=== PATIENT | female | born 1975 | race African-American/Black ===

== ENCOUNTER 2020-01-04 04:03 | Emergency (ER) | payer SELFPAY ==
[~2020-01-04] VITALS: Ht 167.6 cm; Wt 72.0 kg
--- NOTE | 2020-01-04 04:17 | PHYS DOC ---
General Adult EDM: Chief Complaint: CHEST PAIN HPI: HPI: Patient is a 44 year old female who arrives via EMS with report of chest discomfort that EMS reports that started approximately 30 minutes prior to arrival. Patient indicates that pain actually started last year when her mother . She states that her sister had murdered her mother as a ritualistic murder to the [employer]. Patient describes pain as sharp and stabbing in nature and states the pain is worsened with deep breathing. She does admit to feeling anxious. She also indicates that she has been depressed intermittently and has had intermittent thoughts of suicide. She denies any specific suicidal ideations at this time. She does indicate that she has a history of bipolar disorder as well as schizophrenia. Patient rates the pain has bad. Patient has had no nausea, vomiting or diaphoresis. [] (FRANCA SAMUELS Jr. DO) Review of Systems: Review of Systems: Constitutional: Denies fever or chills. [] Respiratory: Denies cough or shortness of breath. [] Cardiovascular: Complains of chest pain. [] GI: Denies abdominal pain, nausea, vomiting or diarrhea. [] Neurologic: Denies headache, focal weakness or sensory changes. [] Psychiatric: Complains of depression and anxiety. [] (FRANCA SAMUELS Jr. DO) Heart Score: HEART Score for Chest Pain: HEART Score for Chest Pain Response (Comments) Value History Slighlty/Non-Suspicious 0 Total 0 Risk Factors: Risk Factors: DM, Current or recent (<one month) smoker, HTN, HLP, family history of CAD, obesity. Risk Scores: Score 0 - 3: 2.5% MACE over next 6 weeks - Discharge Home Score 4 - 6: 20.3% MACE over next 6 weeks - Admit for Clinical Observation Score 7 - 10: 72.7% MACE over next 6 weeks - Early Invasive Strategies (FRANCA SAMUELS Jr. DO) Physical Exam: PE: Constitutional: Well developed, well nourished, no acute distress, non-toxic appearance. [] HENT: Normocephalic, atraumatic, bilateral external ears normal, oropharynx moist, no oral exudates, nose normal. [] Eyes: PERRLA, EOMI, conjunctiva normal, no discharge. [] Neck: Normal range of motion, no tenderness, supple. [] Cardiovascular: Regular rate and rhythm [] Lungs & Thorax: Bilateral breath sounds clear to auscultation [] Abdomen: Bowel sounds normal, soft, no tenderness. [] Skin: Warm, dry, no erythema, no rash. [] Extremities: No tenderness, no cyanosis, no clubbing, ROM intact, no edema. [] Neurologic: Awake and alert, no focal deficits noted. [] (FRANCA SAMUELS Jr., DO) EKG: EKG: [] (FRANCA SAMUELS Jr., DO) Radiology/Procedures: Radiology/Procedures: [] (FRANCA SAMUELS Jr., DO) Course & Med Decision Making: Course & Med Decision Making Pertinent Labs and Imaging studies reviewed. (See chart for details) [] (FRANCA SAMUELS Jr., DO) Course & Med Decision Making She was evaluated by the PAT and cleared for discharge (RAMSES VELAZCO DO) Dragon Disclaimer: Dragon Disclaimer: This electronic medical record was generated, in whole or in part, using a voice recognition dictation system. (FRANCA SAMUELS Jr., DO) Departure Departure Impression: Primary Impression: Acute psychosis Additional Impression: Chest wall pain Disposition: HOME, SELF-CARE Condition: STABLE Patient Instructions: Psychosis FRANCA SAMUELS Jr., DO January 04, 2020 04:17 RAMSES VELAZCO DO January 04, 2020 08:15
--- NOTE | 2020-01-04 04:38 | RAD ---
PORTABLE CHEST 1V Clinical Indication: Chest pain Comparison: None. Findings: The cardiomediastinal silhouette is normal. Lungs are clear. There is no pneumothorax. No pleural effusion is appreciated. No acute bone abnormality. IMPRESSION: No acute cardiopulmonary process. Electronically signed by: Celso Gracia MD (01/04/2020 4:34 AM) [id number]
[2020-01-04 04:50] LABS: BASO # 0.1 x10^3/uL (0.0-0.2); BASO % 1 % (0-3); EOS # 0.2 x10^3/uL (0.0-0.7); EOS % 4 % (0-3); HEMATOCRIT 32.6 % (36.0-47.0); HEMOGLOBIN 10.6 g/dL (12.0-15.5); LYMPH # 2.1 x10^3/uL (1.0-4.8); LYMPH % 36 % (24-48); MEAN CORPUSCULAR HEMOGLOBIN 25 pg (25-35); MEAN CORPUSCULAR HGB CONC 32 g/dL (31-37); MEAN CORPUSCULAR VOLUME 78 fL (79-100); MONO # 0.4 x10^3/uL (0.0-1.1); MONO % 6 % (0-9); NEUT # 3.2 x10^3/uL (1.8-7.7); NEUT % 53 % (31-73); PLATELET COUNT 365 x10^3/uL (140-400); RED BLOOD COUNT 4.16 x10^6/uL (3.50-5.40); RED CELL DISTRIBUTION WIDTH 18.9 % (11.5-14.5)
[2020-01-04 05:03] LABS: CALCIUM 8.4 mg/dL (8.5-10.1); CREATININE 0.6 mg/dL (0.6-1.0); GFR 132.7; POTASSIUM 3.5 mmol/L (3.5-5.1)
[2020-01-04 05:11] LABS: ALBUMIN 3.5 g/dL (3.4-5.0); ALBUMIN/GLOBULIN RATIO 0.9 (1.0-1.7); MAGNESIUM 1.8 mg/dL (1.8-2.4); TOTAL BILIRUBIN 0.5 mg/dL (0.2-1.0); TOTAL PROTEIN 7.6 g/dL (6.4-8.2)
[2020-01-04 05:23] LABS: BARBITURATES NEG (NEG); BENZODIAZEPINES NEG (NEG); CANNABINOIDS POS (NEG); COCAINE POS (NEG); METHADONE NEG (NEG); OPIATES NEG (NEG); PHENCYCLIDINE NEG (NEG)
[2020-01-04 05:29] LABS: AMPHETAMINE/METHAMPHETAMINE NEG (NEG)
[2020-01-04] MEDS ORDERED: hydrALAZINE 20 MG/ML VIAL. IVP ONE ×2 (05:30→06:30)
[2020-01-04 05:40] LABS: BILIRUBIN,URINE NEGATIVE (NEG); CLARITY,URINE CLEAR; COLOR,URINE YELLOW; NITRITE,URINE NEGATIVE (NEG); PH,URINE 6.5 (<5.0-8.0); PROTEIN,URINE 30 mg/dL (NEG-TRACE)
[2020-01-04] MEDS ORDERED: IBUPROFEN 200 MG TABLET. PO ONE (06:00)
[2020-01-04 06:05] VITALS: BP 236/113
[2020-01-04 06:05] LABS: BACTERIA,URINE FEW /HPF (0-FEW); SQUAMOUS EPITHELIAL CELL,UR MOD /LPF; TRICHOMONAS,URINE PRESENT; WBC,URINE OCC /HPF (0-4)
--- NOTE | 2020-01-04 06:51 | EKG ---
[facility] [address] [place] [address] Test Date: 2020-01-04 Test Time: 04:15:27 Pat Name: SAVANNAH HAMMONDS Department: Room: Gender: F [employer]: : 1975 Requested By: FRANCA SAMUELS Order Number: [id number] Reading MD: Glen Melendez Measurements Intervals Monitor Rate: 77 P: -64 ID: 150 QRS: -26 QRSD: 96 T: -55 QT: 408 QTc: 464 Interpretive Statements SINUS RHYTHM LEFT ATRIAL ABNORMALITY LEFTWARD AXIS QRS(T) CONTOUR ABNORMALITY CONSISTENT WITH ANTEROSEPTAL INFARCT PROBABLY OLD CONSISTENT WITH INFERIOR INFARCT AGE UNDETERMINED ABNORMAL ECG Electronically Signed On 01-04-2020 13:40:41 CDT by Glen Melendez
== END 2020-01-04 08:34 | disposition home or self-care (01) ==
LOC: ER 04:03
DX: F23 Brief psychotic disorder (principal); R07.89 Other chest pain; F31.9 Bipolar disorder, unspecified; F20.9 Schizophrenia, unspecified
CPT/HCPCS: 36415; 71045; 80053; 80307; 81001; 81025; 83735; 83880; 84484; 85025; 93005; 96374; 96376; 99285; G0480; J0360

== ENCOUNTER 2020-06-03 04:48 | Emergency (ER) | payer SELFPAY ==
[~2020-06-03] VITALS: Ht 170.2 cm; Wt 77.0 kg
[2020-06-03 05:27] LABS: BILIRUBIN,URINE NEGATIVE (NEG); CLARITY,URINE CLOUDY; COLOR,URINE YELLOW; NITRITE,URINE NEGATIVE (NEG); PROTEIN,URINE NEGATIVE (NEG-TRACE); UROBILINOGEN,URINE 0.2 mg/dL (0.2 mg/dL)
--- NOTE | 2020-06-03 05:29 | PHYS DOC ---
Past Medical History Past Medical History: Anxiety, Bipolar, Depression, Hypertension, Schizophrenia Additional Past Medical Histor: MANIC (KATERINA MASTERSON MD) Past Surgical History: Appendectomy, Cholecystectomy, , Tonsillectomy (KATERINA MASTERSON MD) Smoking Status: Current Every Day Smoker Alcohol Use: Heavy (KATERINA MASTERSON MD) General Adult EDM: Chief Complaint: ABDOMINAL PAIN HPI: HPI: Patient is a 45-year-old female with schizophrenia who presents to the emergency room stating that she has some belly pain from a chronic ulcer. She states she has belly pain on the time. History is limited as patient is actively hallucinating. She left [facility] earlier this morning. She denies suicidal homicidal ideations. (KATERINA MASTERSON MD) Review of Systems: Review of Systems: Unable to obtain (KATERINA MASTERSON MD) Heart Score: Risk Factors: Risk Factors: DM, Current or recent (<one month) smoker, HTN, HLP, family history of CAD, obesity. Risk Scores: Score 0 - 3: 2.5% MACE over next 6 weeks - Discharge Home Score 4 - 6: 20.3% MACE over next 6 weeks - Admit for Clinical Observation Score 7 - 10: 72.7% MACE over next 6 weeks - Early Invasive Strategies (KATERINA MASTERSON MD) Allergies: Allergies: Allergies Coded Allergies Type Severity Reaction Last Updated Verified No Known Drug Allergies 01/04/20 No (KATERINA MASTERSON MD) Physical Exam: PE: General: Awake, alert, NAD. Well Nourished, well hydrated. Cooperative HEENT: Atraumatic, EOMI, PERRL, airway patent, moist oral mucosa Neck: Supple, trachea midline Respiratory: CTA bilaterally, normal effort, no wheezing/crackles CV: RRR, no murmur, cap refill <2 GI: Soft, nondistended, nontender, no masses MSK: No obvious deformities Skin: Warm, dry, intact Neuro: A&O x3, speech NL, sensory and motor grossly intact, no focal deficits Psych: Hallucinating, paranoid, delusions, not suicidal or homicidal (KATERINA MASTERSON MD) Current Patient Data: Vital Signs: Vital Signs Date Time Temp Pulse Resp B/P (MAP) Pulse Ox O2 Delivery O2 Flow Rate FiO2 06/03/20 05:00 97.5 82 20 183/108 (133) 96 Room Air 97.5 (KATERINA MASTERSON MD) EKG: EKG: [] (KATERINA MASTERSON MD) Radiology/Procedures: Radiology/Procedures: [] (KATERINA MASTERSON MD) Course & Med Decision Making: Course & Med Decision Making Pertinent Labs and Imaging studies reviewed. (See chart for details) Patient is 45-year-old female with past medical history of suspect perennial who presents to the emergency room complaining of chronic abdominal pain. Patient will be given a GI cocktail. Urine test will be done. Patient is delusional and hallucinating. She states that she is tired and just needs somewhere to sleep. We will have the PAT team evaluate the patient. At this time she does not appear to be a harm to herself or others. Patient discussed with oncoming physician Dr. Choi who will assume care (KATERINA MASTERSON MD) Dragon Disclaimer: Dragon Disclaimer: This electronic medical record was generated, in whole or in part, using a voice recognition dictation system. (KATERINA MASTERSON MD) Departure Departure Impression: Primary Impression: Psychosis Disposition: 05 TRANSFER OTHER ([facility] UNIT) Condition: IMPROVED Referrals: NO PCP (PCP) Patient Instructions: Psychosis KATERINA MASTESRON MD Jun 03, 2020 05:29 THANG CHOI DO Jun 03, 2020 12:46
[2020-06-03] MEDS ORDERED: LIDO:MAALOX 1:1 20 ML SINGLE DOSE. SWSW ONE (05:30)
[2020-06-03 05:46] LABS: BACTERIA,URINE MOD /HPF (0-FEW); RBC,URINE 0 /HPF (0-2)
[2020-06-03 05:47] LABS: AMORPHOUS SEDIMENT,UR PRESENT /HPF
[2020-06-03] MEDS ORDERED: cloNIDine HCL 0.1 MG TABLET PO ONE (07:00)
[2020-06-03 07:05] LABS: BASO % 0 % (0-3); EOS # 0.3 x10^3/uL (0.0-0.7); EOS % 7 % (0-3); HEMATOCRIT 30.1 % (36.0-47.0); HEMOGLOBIN 9.8 g/dL (12.0-15.5); LYMPH # 2.1 x10^3/uL (1.0-4.8); LYMPH % 41 % (24-48); MEAN CORPUSCULAR HEMOGLOBIN 25 pg (25-35); MEAN CORPUSCULAR HGB CONC 33 g/dL (31-37); MEAN CORPUSCULAR VOLUME 77 fL (79-100); MONO # 0.3 x10^3/uL (0.0-1.1); MONO % 6 % (0-9); NEUT # 2.4 x10^3/uL (1.8-7.7); NEUT % 46 % (31-73); PLATELET COUNT 363 x10^3/uL (140-400); RED CELL DISTRIBUTION WIDTH 17.6 % (11.5-14.5); WHITE BLOOD COUNT 5.2 x10^3/uL (4.0-11.0)
[2020-06-03 07:24] LABS: ACETAMIN < 2 mcg/ml (10-30); ETHANOL < 10 mg/dL (0-10); SALIC 3.6 mg/dL (2.8-20.0)
[2020-06-03 07:43] LABS: ALBUMIN 3.1 g/dL (3.4-5.0); ALBUMIN/GLOBULIN RATIO 0.8 (1.0-1.7); CALCIUM 8.8 mg/dL (8.5-10.1); CREATININE 0.8 mg/dL (0.6-1.0); GFR 94.7; TOTAL BILIRUBIN 0.2 mg/dL (0.2-1.0)
[2020-06-03 07:54] LABS: AMPHETAMINE/METHAMPHETAMINE POS (NEG); BARBITURATES NEG (NEG); BENZODIAZEPINES POS (NEG); CANNABINOIDS POS (NEG); COCAINE NEG (NEG); METHADONE NEG (NEG); OPIATES NEG (NEG); PHENCYCLIDINE NEG (NEG)
[2020-06-03] MEDS ORDERED: ALPRAZolam 0.5 MG TABLET PO ONE (08:00)
[2020-06-03] MEDS ORDERED: POTASSIUM CHLORIDE 20 MEQ TABLET.ER. PO ONE (08:00)
[2020-06-03] MEDS ORDERED: POTASSIUM CHLORIDE 10 MEQ TABLET.ER. PO ONE (08:00)
[2020-06-03 10:58] VITALS: BP 157/95
== END 2020-06-03 12:48 | disposition short-term general hospital (02) ==
LOC: ER 04:48
DX: F29 Unspecified psychosis not due to a substance or known physiological condition (principal); R10.9 Unspecified abdominal pain; G89.29 Other chronic pain; F31.9 Bipolar disorder, unspecified; I10 Essential (primary) hypertension; F20.9 Schizophrenia, unspecified; F17.200 Nicotine dependence, unspecified, uncomplicated; F10.20 Alcohol dependence, uncomplicated; Y90.9 Presence of alcohol in blood, level not specified; Z90.89 Acquired absence of other organs; Z90.49 Acquired absence of other specified parts of digestive tract
CPT/HCPCS: 36415; 80053; 80307; 80329; 81001; 82550; 83690; 85025; 99285; G0480